=== PATIENT | female | born 1995 | race Caucasian/White ===

== ENCOUNTER 2020-06-10 12:04 | Emergency (ER) | payer OTHER ==
[~2020-06-10] VITALS: Ht 172.7 cm; Wt 110.2 kg
[2020-06-10 12:18] VITALS: BP 142/93; Ht 172.7 cm; Wt 110.2 kg
== END 2020-06-10 14:05 | disposition home or self-care (01) ==
LOC: ED 12:04
DX: S43.401A Unspecified sprain of right shoulder joint, initial encounter (principal); X50.0XXA Overexertion from strenuous movement or load, initial encounter; Y93.89 Activity, other specified; Y92.89 Other specified places as the place of occurrence of the external cause; Y99.8 Other external cause status